=== PATIENT | female | born 1975 | race Asian ===

== ENCOUNTER 2023-11-16 13:57 | Day surgery (SDC) | payer OTHER, SELFPAY ==
[2023-11-16] VITALS (7 sets, daily range): BP systolic 111–117; BP diastolic 67–82; PULSE 62–97; RESP 9–16; TEMP 36.2–36.6; O2SAT 100; BMI 23.1
--- NOTE | 2023-11-16 14:20 | SUR.PREOP ---
1420- Notified Dr. Hagan and Dr. Bucio patient had lunch at 1200 consisting of watermelon and small bowl of rice. MD's agreed surgery is emergent and they will proceed.
[2023-11-16] MEDS: LACTATED RINGERS 1,000 ML 30 ML IV CONT (14:30)
[2023-11-16] MEDS: KETOROLAC 15 MG/ML VIAL (*BKC) IV PUSH (14:33)
--- NOTE | 2023-11-16 14:34 | WPDHPUPDATE1 ---
History and Physical Update Update Date/Time: 11/16/23 14:34 History and Physical has been reviewed, including an updated exam of the patient. There are NO changes in the patient's condition. Risks, benefits, and alternatives have been discussed and questions answered. Patient agrees to proceed with procedure.
--- NOTE | 2023-11-16 16:02 | WPDANESEPPF ---
Anes - Initial Pre Proc Eval Procedure: Operation Date: 11/16/23 15:45 Proposed Procedures p Incision and Drainage Josy-Rectal Abscess - Baylee Bucio MD Date/Time: 11/16/23 16:02 Surgeon: Baylee Bucio MD Pre Op Diagnosis: josy rectal abscess Patient Data Age: 48 Gender: F Height: 1.57 m Weight: 57.4 kg Last Vital Signs Temp 97.8 F 11/16/23 14:00 Pulse 97 11/16/23 14:00 Resp 16 11/16/23 14:00 BP 111/75 11/16/23 14:00 Pulse Ox 100 11/16/23 14:00 O2 Del Method Room Air 11/16/23 14:00 Allergies Allergy/AdvReac Type Severity Reaction Status Date / Time No Known Allergies Allergy Verified 11/16/23 13:14 Home Medications Medication Instructions Recorded Confirmed Type cephalexin 500 mg capsule 500 mg PO Q12H 11/16/23 11/16/23 History hydrocodone 7.5 mg-acetaminophen 1 tablet PO PRN PRN Pain 11/16/23 11/16/23 History 325 mg tablet levofloxacin 500 mg tablet 500 mg PO DAILY 11/16/23 11/16/23 History Patient hx anesthesia problems: none Family hx anesthesia problems: none Results Review: All pre-operative results and documents have been reviewed as part of the pre-operative evaluation. [facility] Past Medical History Medical History Cervical polyp Family History Family History Father Diabetes mellitus Stomach cancer Mother Diabetes mellitus Social History Social History Smoking status: Never smoker Alcohol intake: current Alcohol use details: occasional Substance use: never Do You Feel Safe in your Home?: Yes Living arrangements: with family Occupation/Education: occupation Gender identity (if verbalized by the patient): Female Anes - Eval Final PreProcedure Day of Procedure 11/16/23 16:02 Patient weight: normal Heart: regular rate and rhythm Lungs: clear to auscultation Airway: Mallampati scale class II and special considerations (Lower perm cap in place. ) Neurological: alert and oriented Last oral intake: 4 hours ASA classification: I Emergent: yes Anesthetic plan: proceed Anesthesia type and monitoring: general ETT and standard monitoring Results Review: All pre-operative results and documents have been reviewed as part of the pre-operative evaluation. Pt had light lunch at 1200 today, now w need for emergent I and D of abscess. Informed Consent: The patient's anesthetic plan and its attendant risks and benefits were discussed with the patient/family/POA. Questions were solicited and answers provided to the satisfaction of the patient/family/POA.
[2023-11-16] MEDS: ceFAZolin 2 GM/D5W 50 ML 2 GM/50 ML BAG IVPB (16:22)
[2023-11-16] MEDS: BUPIVACAINE/EPINEPHRINE 0.5% 10 ML VIAL 30 ML INFILTRATE (16:31)
--- NOTE | 2023-11-16 16:54 | W.PM.PROC2 ---
Procedure Note - Detailed Date of Procedure 11/16/23 Pre-op Diagnosis right perirectal abscess Post-op Diagnosis Same Procedure Performed complex incision and drainage right perirectal abscess measuring 5 x 4 x 6 cm Surgeon Baylee Bucio MD Anesthesia General and Local Indications 48-year-old female presenting to the office with a large right perirectal abscess Findings large right perirectal abscess with a large amount of purulent drainage measuring 5 x 4 x 6 cm Description of Procedure The patient was taken the operating room and placed in the modified lithotomy position. After adequate induction of general anesthesia, the patient was prepped and draped in the normal sterile fashion. A time-out was then done to verify the patient's identity, as well as the procedure being performed. I began by localizing the area in and around this right perirectal abscess. Then used a 15 blade scalpel to open the abscess in the most fluctuant area. A large amount of purulent drainage was obtained at this time. I then obtained sterile cultures. I then used a hemostat to bluntly dissect around this cavity to allow further drainage. Once the cavity was completely explored, the dimensions of the cavity were 5 x 4 x 6 cm. I then copiously irrigated the cavity. I then packed the cavity with half-inch iodoform to keep the area open and draining. Sterile dressing was then placed. The patient tolerated the procedure well and was extubated postoperatively. She will be sent to the recovery room in stable condition. Estimated Blood Loss 5 Drains No Packing Yes Pathology None sent Complications No immediate complications Condition Stable Disposition PACU [facility] Billing Surgery - Charge Forward: Surgery Billing
== END 2023-11-16 18:43 | disposition home or self-care (01) ==
PROVIDERS: PCP Emergency Medicine; Visit Provider Surgery
PROC: (CPT 46040; principal; 2023-11-16 15:45)
DX: K61.1 Rectal abscess (principal)
CPT/HCPCS: 46040; 87070; 87075; 87076; 87205; J0690; J1885; J3010; J7120

== ENCOUNTER 2024-01-14 01:17 | Day surgery (SDC) | payer OTHER, SELFPAY ==
[2024-01-07 13:00] VITALS: BMI 23.4
--- NOTE | 2024-01-07 13:01 | PC.NURSE ---
Report to the Outpatient Waiting Room, entrance under the green pavilion located off [facility], at time _0745_ on date _[id number]_. Planned Procedure Time: _0945_. Time changes happen often and if your time is changed the preop area will call you the afternoon before. - You and your visitor will be asked to self-screen and do not enter if you have any COVID symptoms. - A mask is optional within the hospital at this time. Patients may have clear liquids (water, carbonated beverages, clear teas, apple juice) until 3 hours prior to surgery with a maximum of 20 ounces. - No food from midnight until time of surgery Take the following medications with a SIP of water the morning of surgery: ____Pain medication if needed. DO NOT STOP ANY OF YOUR OTHER PRESCRIPTION MEDICATIONS PRIOR TO SURGERY ?EXCEPT THE FOLLOWING Medications to discontinue per physician None Date to take last dose Please no make-up, nail [place], hairspray, perfume, deodorant, or body powder the day of surgery. No jewelry (including any body piercings) or valuables the day of surgery, leave them at home. Please take a shower or bath the night before, or the morning of, surgery with an antibacterial soap. Wear comfortable, loose fitting clothing. - Jewelry must be removed prior to entering the operating room. Rings and piercings that are not removed may be cut off. - The hospital will not accept responsibility for valuables. - Please leave all valuables, including medications, at home the day of surgery. If you are going home after surgery, a licensed bookmobile driver must drive you home. - NO public transportation without another adult if you receive anesthesia. - We recommend that an adult stay with you for 24 hours following discharge. - We also recommend that you do not drive, make important decision, drink alcoholic beverages, or take any drugs that were not prescribed by your health care provider for at least 24 hours after your discharge time. Follow any additional instructions given to you from your surgeon. If you or anyone in your household have experienced Covid symptoms in the past week, please notify your surgeon or the nurse liaison at the phone number below for possible testing. Telephone instructions given to __None___and asked if any additional questions and then verbalized understanding. Patient advised to call surgeon office or pre surgery nurse liaison [phone] if any additional questions.
--- NOTE | 2024-01-07 13:17 | PC.NURSE ---
Report to the Outpatient Waiting Room, entrance under the green pavilion located off [facility], at time _0745_ on date _[id number]_. Planned Procedure Time: _0945_. Time changes happen often and if your time is changed the preop area will call you the afternoon before. - You and your visitor will be asked to self-screen and do not enter if you have any COVID symptoms. - A mask is optional within the hospital at this time. - No food or drink from midnight until time of surgery Take the following medications with a SIP of water the morning of surgery: __Tramadol if needed for pain. DO NOT STOP ANY OF YOUR OTHER PRESCRIPTION MEDICATIONS PRIOR TO SURGERY ?EXCEPT THE FOLLOWING Medications to discontinue per physician None Date to take last dose Please no make-up, nail turk[place], hairspray, perfume, deodorant, or body powder the day of surgery. No jewelry (including any body piercings) or valuables the day of surgery, leave them at home. Please take a shower or bath the night before, or the morning of, surgery with an antibacterial soap. Wear comfortable, loose fitting clothing. - Jewelry must be removed prior to entering the operating room. Rings and piercings that are not removed may be cut off. - The hospital will not accept responsibility for valuables. - Please leave all valuables, including medications, at home the day of surgery. If you are going home after surgery, a licensed hazmat cdl driver must drive you home. - NO public transportation without another adult if you receive anesthesia. - We recommend that an adult stay with you for 24 hours following discharge. - We also recommend that you do not drive, make important decision, drink alcoholic beverages, or take any drugs that were not prescribed by your health care provider for at least 24 hours after your discharge time. Follow any additional instructions given to you from your surgeon. If you or anyone in your household have experienced Covid symptoms in the past week, please notify your surgeon or the nurse liaison at the phone number below for possible testing. Telephone instructions given to __Janie___and asked if any additional questions and then verbalized understanding. Patient advised to call surgeon office or pre surgery nurse liaison [phone] if any additional questions.
[2024-01-14] VITALS (9 sets, daily range): BP systolic 87–110; BP diastolic 51–77; PULSE 49–78; RESP 12–16; TEMP 36.1–36.6; O2SAT 99–100
--- NOTE | 2024-01-14 08:28 | WPDHPUPDATE1 ---
History and Physical Update Update Date/Time: 01/14/24 08:28 History and Physical has been reviewed, including an updated exam of the patient. There are NO changes in the patient's condition. Risks, benefits, and alternatives have been discussed and questions answered. Patient agrees to proceed with procedure.
[2024-01-14] MEDS: LACTATED RINGERS 1,000 ML 30 ML IV CONT (08:30)
--- NOTE | 2024-01-14 08:36 | WPDANESEPPF ---
Anes - Initial Pre Proc Eval Procedure: Operation Date: 01/14/24 09:45 Proposed Procedures p Rectal Examination Under Anesthesia with Complex Incision and Drainage of Left Perianal Abscess - Baylee Bucio MD Date/Time: 01/14/24 08:36 Surgeon: Baylee Bucio MD Pre Op Diagnosis: left perianal abscess Patient Data Age: 48 Gender: F Height: 1.57 m Weight: 58.2 kg Allergies Allergy/AdvReac Type Severity Reaction Status Date / Time No Known Allergies Allergy Verified 01/07/24 12:54 Home Medications Medication Instructions Recorded Confirmed Type tramadol 50 mg tablet 50 mg PO Q6H PRN pain #20 tabs 01/05/24 01/07/24 Rx HCG: negative Patient hx anesthesia problems: none Family hx anesthesia problems: none Results Review: All pre-operative results and documents have been reviewed as part of the pre-operative evaluation. [facility] Past Medical History Medical History Cervical polyp Surgical History Surgical History History of incision and drainage complex I&D perirectal abscess 11/16/23 Baylee Bucio MD Family History Family History Father Diabetes mellitus Stomach cancer Mother Diabetes mellitus Social History Social History Smoking status: Never smoker Alcohol intake: current Alcohol use details: occasional Substance use: never Do You Feel Safe in your Home?: Yes Living arrangements: alone Occupation/Education: occupation Gender identity (if verbalized by the patient): Female Spiritual care concerns: No Anes - Eval Final PreProcedure Day of Procedure 01/14/24 08:36 Patient weight: normal Heart: regular rate and rhythm Lungs: clear to auscultation Airway: Mallampati scale class 1 Neurological: alert and oriented Last oral intake: >/= 8 hours ASA classification: I Emergent: no Anesthetic plan: proceed Results Review: All pre-operative results and documents have been reviewed as part of the pre-operative evaluation. Informed Consent: The patient's anesthetic plan and its attendant risks and benefits were discussed with the patient/family/POA. Questions were solicited and answers provided to the satisfaction of the patient/family/POA.
[2024-01-14] MEDS: ACETAMINOPHEN 500 MG TABLET 1000 MG PO (08:40)
[2024-01-14] MEDS: KETOROLAC 15 MG/ML VIAL (*BKC) IV PUSH (08:40)
[2024-01-14] MEDS: ceFAZolin 2 GM/D5W 50 ML 2 GM/50 ML BAG IVPB (08:44)
[2024-01-14] MEDS: BUPIVACAINE/EPINEPHRINE 0.5% 10 ML VIAL 30 ML INFILTRATE (08:53)
--- NOTE | 2024-01-14 09:13 | W.PM.PROC2 ---
Procedure Note - Detailed Date of Procedure 01/14/24 Pre-op Diagnosis Recurrent left perianal abscess Post-op Diagnosis Same Procedure Performed complex incision and drainage recurrent left perianal abscess measuring 4 x 5 cm Surgeon Baylee Bucio MD Anesthesia MAC and Local Indications 48 year female with recurrent left perianal abscess Findings 4 x 5 cm left perianal abscess Description of Procedure The patient was taken the operating room and placed in the modified lithotomy position. After induction of MAC anesthesia, the patient was prepped and draped in the normal sterile fashion a time-out was then done to verify the patient's identity, as well as the procedure being performed. I began by examining the area noting the recurrent left perianal abscess. This was noted to be lateral to the previous incision and drainage. This area was moderately indurated and fluctuant. There were some no obvious drainage. I then localized the area in and around this recurrent abscess. I then did a digital rectal exam and the anoscope was placed. There was no obvious fistulization to the abscess. At this point, I made a small incision most fluctuant area the abscess. This was done with a 15 blade scalp. There was some purulent drainage noted. I was then able to use a hemostat to bluntly dissect around the cavity. Again no fistulous tract was noted to the anus. The cavity measured approximately 4 x 5 cm. Once completely open and drained, packed this with quarter-inch iodoform. Approximately 18 in iodoform was packed in the cavity. Sterile dressing was then placed. The patient tolerated the procedure well and was awake and alert postoperatively. She was transferred to the stable condition Estimated Blood Loss 5 Packing Yes Pathology None sent Complications No immediate complications Condition Stable Disposition PACU [facility] Billing Surgery - Charge Forward: Surgery Billing
[2024-01-14 09:36] LABS: BEDSIDEPREGUCG Negative
--- NOTE | 2024-01-14 09:47 | SUR.PHASEI ---
Simple mask removed at 0940.
== END 2024-01-14 11:05 | disposition home or self-care (01) ==
PROVIDERS: PCP Emergency Medicine; Visit Provider Surgery
PROC: (CPT 46040; principal; 2024-01-14 08:30)
DX: L02.215 Cutaneous abscess of perineum (principal); Z79.891 Long term (current) use of opiate analgesic; Z98.890 Other specified postprocedural states; Z80.0 Family history of malignant neoplasm of digestive organs
CPT/HCPCS: 46040; A9270; J0690; J1100; J1885; J2405; J2704; J7120